=== PATIENT | female | born 1945 | race Caucasian/White ===

== ENCOUNTER 2017-12-09 16:04 | Inpatient (IN) | payer OTHER ==
[2017-12-09 17:20] LABS: ADD UMIC YES; UR ASCORBIC ACID NEGATIVE (NEGATIVE); UR BACTERIA MANY /HPF (NONE SEEN); UR BILIRUBIN (Dip) NEGATIVE (NEGATIVE); UR BLOOD (Dip) 2+ mg/dL (NEGATIVE); UR CLARITY CLOUDY (CLEAR); UR COLOR YELLOW (YELLOW); UR GLUCOSE (Dip) NEGATIVE (NEGATIVE); UR KETONES (Dip) TRACE mg/dL (NEGATIVE); UR LEUKOCYTE ESTERASE (Dip) 3+ Leu/ul (NEGATIVE); UR NITRITE (Dip) POSITIVE (NEGATIVE); UR RBC 1 /HPF (0-5); UR SPECIFIC GRAVITY (Dip) 1.009 (1.003-1.030); UR SQUAMOUS EPITHELIAL CELL FEW /HPF (FEW); UR TOTAL PROTEIN (Dip) NEGATIVE (NEGATIVE); UR UROBILINOGEN (Dip) NEGATIVE (NEGATIVE); UR WBC > 182 /HPF (0-5)
[2017-12-09] MEDS ORDERED: CARBOXYMETHYLCELLULOSE 0.5% 0.1 ML OPH BOTH EYES (18:00)
[2017-12-09] MEDS ORDERED: LORAZEPAM 1 MG TAB PO (18:00)
[2017-12-09] MEDS ORDERED: DEXTROSE 50% 50 ML SYRINGE IV ×2 (18:00)
[2017-12-09] MEDS ORDERED: GLUCAGON 1 MG INJ IM (18:00)
[2017-12-09] MEDS ORDERED: GLUCOSE GEL 15 GRAM TUBE BUCCAL (18:00)
[2017-12-09] MEDS ORDERED: GLUCOSE GEL 15 GRAM TUBE PO ×2 (18:00)
[2017-12-09] MEDS: RIVAROXABAN 20 MG TABLET PO (18:12)
[2017-12-09] MEDS: LISINOPRIL 20 MG TAB PO (18:12)
[2017-12-09] MEDS: DIAZEPAM 5 MG TAB PO (20:57)
[2017-12-09] MEDS: ATORVASTATIN 40 MG TAB PO (20:57)
[2017-12-09] MEDS: AMLODIPINE 5 MG TAB PO (20:58)
[2017-12-09] MEDS: Insulin NOVOLOG SS MILD Algorithm (SS with meals and bedtime) SC (20:58)
[2017-12-09] MEDS: DOCUSATE SODIUM 100 MG CAP PO (21:00)
[2017-12-10] MEDS: ACCUCHECK 2 AM XX (02:00)
[2017-12-10] MEDS: ACETAMINOPHEN 325 MG TAB PO (04:42)
[2017-12-10] MEDS: Insulin NOVOLOG SS MILD Algorithm (SS with meals and bedtime) SC ×4 (08:11→20:38)
[2017-12-10 08:16] LABS: ADD MAN DIFF? NO
[2017-12-10 08:19] LABS: WHITE BLOOD COUNT 7.7 10^3/ul (4.8-10.8)
[2017-12-10 08:19] LABS: BASOPHILS % 0.5 % (0.0-2.0); EOSINOPHILS % 0.5 % (0.0-7.0); HEMATOCRIT 41.9 % (37.0-47.0); HEMOGLOBIN 14.7 g/dl (12.0-16.0); LYMPHOCYTES # 1.3 10^3/ul (0.8-2.9); LYMPHOCYTES % 17.4 % (15.0-51.0); MEAN CORPUSCULAR HEMOGLOBIN 29.8 pg (29.0-33.0); MEAN CORPUSCULAR HGB CONC 35.1 g/dl (32.0-37.0); MEAN CORPUSCULAR VOLUME 84.8 fl (82.0-101.0); MEAN PLATELET VOLUME 11.8 fl (7.4-10.4); MONOCYTE # 0.9 10^3/ul (0.3-0.9); MONOCYTES % 11.4 % (0.0-11.0); NEUTROPHIL # 5.4 10^3/ul (1.6-7.5); NEUTROPHILS % 69.9 % (39.0-77.0); PLATELET COUNT 317 10^3/UL (140-415); RED BLOOD COUNT 4.94 10^6/ul (4.20-5.40); RED CELL DISTRIBUTION WIDTH 12.8 % (11.5-14.5)
[2017-12-10] MEDS: AMLODIPINE 5 MG TAB PO ×2 (08:28→20:07)
[2017-12-10] MEDS: DOCUSATE SODIUM 100 MG CAP PO ×2 (08:29→20:38)
[2017-12-10 08:42] LABS: ALANINE AMINOTRANSFERASE 31 IU/L (13-69); ALBUMIN 3.7 g/dl (3.3-4.9); ALBUMIN/GLOBULIN RATIO 1.19; ALKALINE PHOSPHATASE 151 IU/L (42-121); ANION GAP 19 (8-16); ASPARTATE AMINO TRANSFERASE 34 IU/L (15-46); BILIRUBIN,INDIRECT 1.4 mg/dl (0-1.1); BILIRUBIN,TOTAL 1.4 mg/dl (0.2-1.3); BLOOD UREA NITROGEN 17 mg/dl (7-20); CALCIUM 9.3 mg/dl (8.4-10.2); CARBON DIOXIDE 23 mmol/L (21-31); CHLORIDE 102 mmol/L (97-110); CREATININE 0.84 mg/dl (0.44-1.00); GLUCOSE 176 mg/dl (70-220); POTASSIUM 3.2 mmol/L (3.5-5.1); SODIUM 141 mmol/L (135-144); TOTAL PROTEIN 6.8 g/dl (6.1-8.1)
[2017-12-10] MEDS: CEPHALEXIN 250 MG CAP PO ×2 (14:27→21:27)
[2017-12-10] MEDS: LISINOPRIL 20 MG TAB PO (17:46)
[2017-12-10] MEDS: RIVAROXABAN 20 MG TABLET PO (17:46)
[2017-12-10] MEDS: ATORVASTATIN 40 MG TAB PO (20:08)
[2017-12-10] MEDS: GABAPENTIN 100 MG CAP PO (20:09)
[2017-12-11] MEDS: ACCUCHECK 2 AM XX (02:00)
[2017-12-11] MEDS: CEPHALEXIN 250 MG CAP PO ×3 (06:11→21:35)
[2017-12-11] MEDS: Insulin NOVOLOG SS MILD Algorithm (SS with meals and bedtime) SC ×4 (08:09→21:00)
[2017-12-11] MEDS: AMLODIPINE 5 MG TAB PO ×2 (09:00→21:36)
[2017-12-11] MEDS: DOCUSATE SODIUM 100 MG CAP PO ×2 (09:00→21:00)
[2017-12-11] MEDS: LISINOPRIL 20 MG TAB PO (18:00)
[2017-12-11] MEDS: RIVAROXABAN 20 MG TABLET PO (18:57)
[2017-12-11] MEDS: GABAPENTIN 100 MG CAP PO (21:00)
[2017-12-11] MEDS: ATORVASTATIN 40 MG TAB PO (21:00)
[2017-12-12] MEDS: ACCUCHECK 2 AM XX (02:00)
[2017-12-12] MEDS: CEPHALEXIN 250 MG CAP PO (06:31)
[2017-12-12] MEDS: DOCUSATE SODIUM 100 MG CAP PO ×2 (09:00→21:00)
[2017-12-12] MEDS: Insulin NOVOLOG SS MILD Algorithm (SS with meals and bedtime) SC ×4 (09:09→20:32)
[2017-12-12] MEDS: AMLODIPINE 5 MG TAB PO ×2 (09:17→20:32)
[2017-12-12] MEDS: LEVOFLOXACIN 250 MG TAB PO (14:55)
[2017-12-12] MEDS: LISINOPRIL 20 MG TAB PO (17:45)
[2017-12-12] MEDS: RIVAROXABAN 20 MG TABLET PO (17:45)
[2017-12-12] MEDS: GABAPENTIN 100 MG CAP PO (20:31)
[2017-12-12] MEDS: ATORVASTATIN 40 MG TAB PO (20:32)
[2017-12-12] MEDS: ACETAMINOPHEN 325 MG TAB PO (22:27)
[2017-12-12] MEDS: ALPRAZOLAM 0.25 MG TAB PO (22:28)
[2017-12-13] MEDS: ACCUCHECK 2 AM XX (02:00)
[2017-12-13] MEDS: LEVOFLOXACIN 250 MG TAB PO (06:32)
[2017-12-13 07:00] LABS: ADD MAN DIFF? NO
[2017-12-13 07:05] LABS: BASOPHIL # 0.1 10^3/ul (0.0-0.1); BASOPHILS % 0.8 % (0.0-2.0); EOSINOPHILS # 0.2 10^3/ul (0.0-0.5); EOSINOPHILS % 2.8 % (0.0-7.0); HEMATOCRIT 41.5 % (37.0-47.0); HEMOGLOBIN 14.5 g/dl (12.0-16.0); LYMPHOCYTES # 1.5 10^3/ul (0.8-2.9); LYMPHOCYTES % 23.3 % (15.0-51.0); MEAN CORPUSCULAR HEMOGLOBIN 29.6 pg (29.0-33.0); MEAN CORPUSCULAR HGB CONC 34.9 g/dl (32.0-37.0); MEAN CORPUSCULAR VOLUME 84.7 fl (82.0-101.0); NEUTROPHIL # 3.8 10^3/ul (1.6-7.5); NEUTROPHILS % 57.8 % (39.0-77.0); PLATELET COUNT 335 10^3/UL (140-415); RED CELL DISTRIBUTION WIDTH 12.5 % (11.5-14.5)
[2017-12-13 07:05] LABS: WHITE BLOOD COUNT 6.5 10^3/ul (4.8-10.8)
[2017-12-13 07:24] LABS: PHOSPHORUS 4.7 mg/dl (2.5-4.9)
[2017-12-13 07:28] LABS: ALANINE AMINOTRANSFERASE 38 IU/L (13-69); ALBUMIN 3.5 g/dl (3.3-4.9); ALBUMIN/GLOBULIN RATIO 1.12; ALKALINE PHOSPHATASE 130 IU/L (42-121); ANION GAP 16 (8-16); ASPARTATE AMINO TRANSFERASE 36 IU/L (15-46); BILIRUBIN,INDIRECT 1.1 mg/dl (0-1.1); BILIRUBIN,TOTAL 1.1 mg/dl (0.2-1.3); BLOOD UREA NITROGEN 13 mg/dl (7-20); CALCIUM 9.6 mg/dl (8.4-10.2); CARBON DIOXIDE 28 mmol/L (21-31); CHLORIDE 102 mmol/L (97-110); CHOL/HDL RATIO 3.1 RATIO; CHOLESTEROL 105 mg/dl (100-200); CREATININE 0.81 mg/dl (0.44-1.00); GLUCOSE 164 mg/dl (70-220); HDL CHOLESTEROL 33 mg/dl (33-92); LDL CHOLESTEROL,CALCULATED 46 mg/dl; POTASSIUM 3.5 mmol/L (3.5-5.1); SODIUM 142 mmol/L (135-144); TOTAL PROTEIN 6.6 g/dl (6.1-8.1); TRIGLYCERIDES 132 mg/dl (0-149)
[2017-12-13 07:37] LABS: B-TYPE NATRIURETIC PEPTIDE 107 PG/ML (0-125)
[2017-12-13] MEDS: AMLODIPINE 5 MG TAB PO ×2 (09:00→20:59)
[2017-12-13] MEDS: Insulin NOVOLOG SS MILD Algorithm (SS with meals and bedtime) SC ×4 (09:10→21:00)
[2017-12-13] MEDS: DOCUSATE SODIUM 100 MG CAP PO ×2 (09:16→21:02)
[2017-12-13] MEDS: LISINOPRIL 20 MG TAB PO (17:57)
[2017-12-13] MEDS: RIVAROXABAN 20 MG TABLET PO (17:57)
[2017-12-13] MEDS: ATORVASTATIN 40 MG TAB PO (20:51)
[2017-12-13] MEDS: GABAPENTIN 100 MG CAP PO (20:59)
[2017-12-14] MEDS: ACCUCHECK 2 AM XX (02:00)
[2017-12-14] MEDS: LEVOFLOXACIN 250 MG TAB PO (06:16)
[2017-12-14] MEDS: TRIAMCINOLONE ACET 0.1% 15 GM CR TOP (06:39)
[2017-12-14] MEDS: Insulin NOVOLOG SS MILD Algorithm (SS with meals and bedtime) SC ×4 (08:12→20:44)
[2017-12-14] MEDS: DOCUSATE SODIUM 100 MG CAP PO ×2 (09:07→20:44)
[2017-12-14] MEDS: AMLODIPINE 5 MG TAB PO ×2 (09:07→20:44)
[2017-12-14] MEDS: ACETAMINOPHEN 325 MG TAB PO (09:20)
[2017-12-14] MEDS: RIVAROXABAN 20 MG TABLET PO (17:42)
[2017-12-14] MEDS: LISINOPRIL 20 MG TAB PO (17:42)
[2017-12-14] MEDS: metFORMIN 500 MG TAB PO (17:42)
[2017-12-14] MEDS: GABAPENTIN 100 MG CAP PO (20:44)
[2017-12-14] MEDS: ATORVASTATIN 40 MG TAB PO (20:44)
[2017-12-15] MEDS: ACCUCHECK 2 AM XX (02:00)
[2017-12-15] MEDS: LEVOFLOXACIN 250 MG TAB PO (06:18)
[2017-12-15] MEDS: DOCUSATE SODIUM 100 MG CAP PO ×2 (09:00→20:38)
[2017-12-15] MEDS: metFORMIN 500 MG TAB PO ×2 (09:13→17:35)
[2017-12-15] MEDS: AMLODIPINE 5 MG TAB PO ×2 (09:14→20:32)
[2017-12-15] MEDS: Insulin NOVOLOG SS MILD Algorithm (SS with meals and bedtime) SC ×5 (09:16→20:38)
[2017-12-15] MEDS: RIVAROXABAN 20 MG TABLET PO (18:19)
[2017-12-15] MEDS: LISINOPRIL 20 MG TAB PO (18:20)
[2017-12-15] MEDS: ATORVASTATIN 40 MG TAB PO (20:31)
[2017-12-15] MEDS: ALPRAZOLAM 0.25 MG TAB PO (20:32)
[2017-12-15] MEDS: GABAPENTIN 100 MG CAP PO (20:32)
[2017-12-16] MEDS: ACCUCHECK 2 AM XX (02:00)
[2017-12-16] MEDS: LEVOFLOXACIN 250 MG TAB PO (06:53)
[2017-12-16] MEDS: metFORMIN 500 MG TAB PO ×2 (08:06→17:35)
[2017-12-16] MEDS: Insulin NOVOLOG SS MILD Algorithm (SS with meals and bedtime) SC ×4 (08:08→21:00)
[2017-12-16] MEDS: DOCUSATE SODIUM 100 MG CAP PO ×2 (09:04→21:00)
[2017-12-16] MEDS: AMLODIPINE 5 MG TAB PO ×2 (09:04→20:23)
[2017-12-16] MEDS: ALPRAZOLAM 0.25 MG TAB PO (16:36)
[2017-12-16] MEDS: RIVAROXABAN 20 MG TABLET PO (18:07)
[2017-12-16] MEDS: LISINOPRIL 20 MG TAB PO (18:07)
[2017-12-16] MEDS: ATORVASTATIN 40 MG TAB PO (20:22)
[2017-12-16] MEDS: GABAPENTIN 100 MG CAP PO (20:22)
[2017-12-17] MEDS: ACCUCHECK 2 AM XX (02:00)
[2017-12-17] MEDS: LEVOFLOXACIN 250 MG TAB PO (06:22)
[2017-12-17] MEDS: Insulin NOVOLOG SS MILD Algorithm (SS with meals and bedtime) SC ×4 (07:05→20:58)
[2017-12-17] MEDS: metFORMIN 500 MG TAB PO ×3 (07:35→17:35)
[2017-12-17] MEDS: AMLODIPINE 5 MG TAB PO ×2 (09:37→20:51)
[2017-12-17] MEDS: DOCUSATE SODIUM 100 MG CAP PO ×2 (09:37→20:59)
[2017-12-17] MEDS: LOPERAMIDE 2 MG CAP PO (13:14)
[2017-12-17] MEDS: ALPRAZOLAM 0.25 MG TAB PO (17:08)
[2017-12-17] MEDS: RIVAROXABAN 20 MG TABLET PO (17:51)
[2017-12-17] MEDS: LISINOPRIL 20 MG TAB PO (17:52)
[2017-12-17] MEDS: GABAPENTIN 100 MG CAP PO (20:50)
[2017-12-17] MEDS: ATORVASTATIN 40 MG TAB PO (20:50)
[2017-12-17] MEDS: TRIAMCINOLONE ACET 0.1% 15 GM CR TOP (22:26)
[2017-12-18] MEDS: ACCUCHECK 2 AM XX (03:00)
[2017-12-18] MEDS: LEVOFLOXACIN 250 MG TAB PO (05:53)
[2017-12-18 06:52] LABS: ADD MAN DIFF? NO
[2017-12-18 07:00] LABS: WHITE BLOOD COUNT 4.5 10^3/ul (4.8-10.8)
[2017-12-18 07:00] LABS: BASOPHILS % 0.7 % (0.0-2.0); EOSINOPHILS # 0.1 10^3/ul (0.0-0.5); EOSINOPHILS % 2.4 % (0.0-7.0); HEMATOCRIT 38.8 % (37.0-47.0); HEMOGLOBIN 13.4 g/dl (12.0-16.0); LYMPHOCYTES # 1.2 10^3/ul (0.8-2.9); LYMPHOCYTES % 25.4 % (15.0-51.0); MEAN CORPUSCULAR HEMOGLOBIN 29.8 pg (29.0-33.0); MEAN CORPUSCULAR HGB CONC 34.5 g/dl (32.0-37.0); MEAN CORPUSCULAR VOLUME 86.2 fl (82.0-101.0); MEAN PLATELET VOLUME 11.3 fl (7.4-10.4); MONOCYTE # 0.7 10^3/ul (0.3-0.9); MONOCYTES % 14.4 % (0.0-11.0); NEUTROPHIL # 2.6 10^3/ul (1.6-7.5); NEUTROPHILS % 56.9 % (39.0-77.0); PLATELET COUNT 236 10^3/UL (140-415); RED CELL DISTRIBUTION WIDTH 12.9 % (11.5-14.5)
[2017-12-18] MEDS: Insulin NOVOLOG SS MILD Algorithm (SS with meals and bedtime) SC ×4 (07:05→21:00)
[2017-12-18 07:16] LABS: ANION GAP 15 (8-16); BLOOD UREA NITROGEN 9 mg/dl (7-20); CALCIUM 9.1 mg/dl (8.4-10.2); CARBON DIOXIDE 26 mmol/L (21-31); CHLORIDE 107 mmol/L (97-110); CREATININE 0.73 mg/dl (0.44-1.00); GLUCOSE 116 mg/dl (70-220); POTASSIUM 3.7 mmol/L (3.5-5.1); SODIUM 144 mmol/L (135-144)
[2017-12-18 07:23] LABS: ALANINE AMINOTRANSFERASE 40 IU/L (13-69); ALBUMIN 3.4 g/dl (3.3-4.9); ALBUMIN/GLOBULIN RATIO 1.25; ALKALINE PHOSPHATASE 110 IU/L (42-121); ANION GAP 14 (8-16); ASPARTATE AMINO TRANSFERASE 40 IU/L (15-46); BILIRUBIN,INDIRECT 0.8 mg/dl (0-1.1); BILIRUBIN,TOTAL 0.8 mg/dl (0.2-1.3); BLOOD UREA NITROGEN 9 mg/dl (7-20); CALCIUM 8.9 mg/dl (8.4-10.2); CARBON DIOXIDE 27 mmol/L (21-31); CHLORIDE 106 mmol/L (97-110); CREATININE 0.76 mg/dl (0.44-1.00); GLUCOSE 120 mg/dl (70-220); POTASSIUM 3.2 mmol/L (3.5-5.1); SODIUM 144 mmol/L (135-144); TOTAL PROTEIN 6.1 g/dl (6.1-8.1)
[2017-12-18] MEDS: metFORMIN 500 MG TAB PO ×2 (07:35→17:35)
[2017-12-18] MEDS: DOCUSATE SODIUM 100 MG CAP PO ×2 (09:00→20:30)
[2017-12-18] MEDS: AMLODIPINE 5 MG TAB PO ×2 (09:03→20:29)
[2017-12-18] MEDS: POTASSIUM CHLORIDE (SR) 20 MEQ TAB PO (09:04)
[2017-12-18] MEDS: ALPRAZOLAM 0.25 MG TAB PO (17:55)
[2017-12-18] MEDS: LISINOPRIL 20 MG TAB PO (17:55)
[2017-12-18] MEDS: RIVAROXABAN 20 MG TABLET PO (17:55)
[2017-12-18] MEDS: GUAIFENESIN 20 MG/ML 5ML CUP PO (19:51)
[2017-12-18] MEDS: GABAPENTIN 100 MG CAP PO (20:28)
[2017-12-18] MEDS: ATORVASTATIN 40 MG TAB PO (20:28)
[2017-12-19] MEDS: ACCUCHECK 2 AM XX (02:00)
[2017-12-19] MEDS: Insulin NOVOLOG SS MILD Algorithm (SS with meals and bedtime) SC ×4 (08:14→20:53)
[2017-12-19] MEDS: metFORMIN 500 MG TAB PO ×3 (08:15→17:48)
[2017-12-19] MEDS: DOCUSATE SODIUM 100 MG CAP PO ×2 (08:42→20:43)
[2017-12-19] MEDS: AMLODIPINE 5 MG TAB PO ×2 (09:01→20:42)
[2017-12-19] MEDS: RIVAROXABAN 20 MG TABLET PO (17:48)
[2017-12-19] MEDS: LISINOPRIL 20 MG TAB PO (18:00)
[2017-12-19] MEDS: GUAIFENESIN 20 MG/ML 5ML CUP PO (20:42)
[2017-12-19] MEDS: ATORVASTATIN 40 MG TAB PO (20:42)
[2017-12-19] MEDS: ALPRAZOLAM 0.25 MG TAB PO (20:43)
[2017-12-19] MEDS: GABAPENTIN 100 MG CAP PO (20:43)
[2017-12-20] MEDS: ACCUCHECK 2 AM XX (02:00)
[2017-12-20 06:38] LABS: ADD MAN DIFF? NO
[2017-12-20 06:41] LABS: HEMATOCRIT 38.9 % (37.0-47.0); HEMOGLOBIN 13.3 g/dl (12.0-16.0); LYMPHOCYTES % 31.9 % (15.0-51.0); MEAN CORPUSCULAR HGB CONC 34.2 g/dl (32.0-37.0); MEAN CORPUSCULAR VOLUME 84.9 fl (82.0-101.0); MEAN PLATELET VOLUME 11.3 fl (7.4-10.4); MONOCYTES % 11.2 % (0.0-11.0); NEUTROPHILS % 49.1 % (39.0-77.0); PLATELET COUNT 217 10^3/UL (140-415); RED BLOOD COUNT 4.58 10^6/ul (4.20-5.40); RED CELL DISTRIBUTION WIDTH 12.7 % (11.5-14.5)
[2017-12-20 06:41] LABS: WHITE BLOOD COUNT 4.1 10^3/ul (4.8-10.8)
[2017-12-20 06:42] LABS: BASOPHILS % 0.5 % (0.0-2.0); EOSINOPHILS # 0.3 10^3/ul (0.0-0.5); EOSINOPHILS % 7.1 % (0.0-7.0); LYMPHOCYTES # 1.3 10^3/ul (0.8-2.9); MONOCYTE # 0.5 10^3/ul (0.3-0.9)
[2017-12-20] MEDS: Insulin NOVOLOG SS MILD Algorithm (SS with meals and bedtime) SC ×4 (07:05→21:00)
[2017-12-20 07:11] LABS: ALANINE AMINOTRANSFERASE 33 IU/L (13-69); ALBUMIN 3.2 g/dl (3.3-4.9); ALKALINE PHOSPHATASE 106 IU/L (42-121); ANION GAP 15 (8-16); ASPARTATE AMINO TRANSFERASE 33 IU/L (15-46); BILIRUBIN,INDIRECT 0.7 mg/dl (0-1.1); BILIRUBIN,TOTAL 0.7 mg/dl (0.2-1.3); BLOOD UREA NITROGEN 11 mg/dl (7-20); CALCIUM 8.8 mg/dl (8.4-10.2); CARBON DIOXIDE 27 mmol/L (21-31); CHLORIDE 106 mmol/L (97-110); CREATININE 0.67 mg/dl (0.44-1.00); GLUCOSE 124 mg/dl (70-220); MAGNESIUM 1.9 mg/dl (1.7-2.5); POTASSIUM 3.4 mmol/L (3.5-5.1); SODIUM 145 mmol/L (135-144); TOTAL PROTEIN 6.1 g/dl (6.1-8.1)
[2017-12-20] MEDS: metFORMIN 500 MG TAB PO ×2 (07:35→17:35)
[2017-12-20] MEDS: DOCUSATE SODIUM 100 MG CAP PO ×2 (08:17→21:00)
[2017-12-20] MEDS: AMLODIPINE 5 MG TAB PO ×2 (08:29→21:35)
[2017-12-20] MEDS: POTASSIUM CHLORIDE (SR) 20 MEQ TAB PO (08:29)
[2017-12-20] MEDS: GUAIFENESIN 20 MG/ML 5ML CUP PO (16:55)
[2017-12-20] MEDS ORDERED: BETAMETHASONE/CLOTRIMAZOLE 15 GM CR TOP (17:30)
[2017-12-20] MEDS: RIVAROXABAN 20 MG TABLET PO (17:52)
[2017-12-20] MEDS: LISINOPRIL 20 MG TAB PO (18:01)
[2017-12-20] MEDS: ATORVASTATIN 40 MG TAB PO (21:34)
[2017-12-20] MEDS: ALPRAZOLAM 0.25 MG TAB PO (21:36)
[2017-12-20] MEDS: GABAPENTIN 100 MG CAP PO (21:36)
[2017-12-21] MEDS: ACCUCHECK 2 AM XX (02:00)
[2017-12-21] MEDS: GUAIFENESIN 20 MG/ML 5ML CUP PO ×3 (02:16→20:21)
[2017-12-21] MEDS ORDERED: ALBUTEROL/IPRATROPIUM (NEB) 3 ML AMP (03:09)
[2017-12-21] MEDS: ALBUTEROL/IPRATROPIUM (NEB) 3 ML AMP HHN ×2 (03:21→15:35)
[2017-12-21] MEDS: Insulin NOVOLOG SS MILD Algorithm (SS with meals and bedtime) SC ×4 (07:05→20:21)
[2017-12-21] MEDS: metFORMIN 500 MG TAB PO ×2 (07:35→17:33)
[2017-12-21] MEDS: AMLODIPINE 5 MG TAB PO ×2 (08:48→20:10)
[2017-12-21] MEDS: DOCUSATE SODIUM 100 MG CAP PO ×2 (09:00→21:00)
[2017-12-21 09:08] LABS: ADD MAN DIFF? NO
[2017-12-21 09:14] LABS: WHITE BLOOD COUNT 5.1 10^3/ul (4.8-10.8)
[2017-12-21 09:14] LABS: BASOPHILS % 0.4 % (0.0-2.0); EOSINOPHILS # 0.2 10^3/ul (0.0-0.5); EOSINOPHILS % 4.5 % (0.0-7.0); HEMATOCRIT 40.9 % (37.0-47.0); LYMPHOCYTES # 1.6 10^3/ul (0.8-2.9); LYMPHOCYTES % 31.5 % (15.0-51.0); MEAN CORPUSCULAR HEMOGLOBIN 29.4 pg (29.0-33.0); MEAN CORPUSCULAR HGB CONC 34.2 g/dl (32.0-37.0); MEAN CORPUSCULAR VOLUME 85.9 fl (82.0-101.0); MEAN PLATELET VOLUME 11.8 fl (7.4-10.4); MONOCYTE # 0.5 10^3/ul (0.3-0.9); MONOCYTES % 10.2 % (0.0-11.0); NEUTROPHIL # 2.7 10^3/ul (1.6-7.5); NEUTROPHILS % 53.2 % (39.0-77.0); PLATELET COUNT 202 10^3/UL (140-415); RED BLOOD COUNT 4.76 10^6/ul (4.20-5.40); RED CELL DISTRIBUTION WIDTH 12.8 % (11.5-14.5)
[2017-12-21 09:40] LABS: ANION GAP 15 (8-16); BLOOD UREA NITROGEN 11 mg/dl (7-20); CALCIUM 8.9 mg/dl (8.4-10.2); CARBON DIOXIDE 24 mmol/L (21-31); CHLORIDE 108 mmol/L (97-110); CREATININE 0.71 mg/dl (0.44-1.00); GLUCOSE 132 mg/dl (70-220); POTASSIUM 4.1 mmol/L (3.5-5.1); SODIUM 143 mmol/L (135-144)
[2017-12-21] MEDS: ACETAMINOPHEN 325 MG TAB PO (10:38)
[2017-12-21] MEDS: RIVAROXABAN 20 MG TABLET PO (17:32)
[2017-12-21] MEDS: LISINOPRIL 20 MG TAB PO (17:33)
[2017-12-21] MEDS: GABAPENTIN 100 MG CAP PO (20:10)
[2017-12-21] MEDS: ALPRAZOLAM 0.25 MG TAB PO (20:10)
[2017-12-21] MEDS: TRIAMCINOLONE ACET 0.1% 15 GM CR TOP (20:11)
[2017-12-21] MEDS: ATORVASTATIN 40 MG TAB PO (20:11)
[2017-12-22] MEDS: ACCUCHECK 2 AM XX (02:57)
[2017-12-22] MEDS: metFORMIN 500 MG TAB PO ×2 (07:35→16:58)
[2017-12-22] MEDS: Insulin NOVOLOG SS MILD Algorithm (SS with meals and bedtime) SC ×4 (08:00→20:28)
[2017-12-22] MEDS: DOCUSATE SODIUM 100 MG CAP PO ×2 (08:15→20:25)
[2017-12-22] MEDS: AMLODIPINE 5 MG TAB PO ×2 (08:17→20:25)
[2017-12-22] MEDS: ALBUTEROL/IPRATROPIUM (NEB) 3 ML AMP HHN (14:38)
[2017-12-22] MEDS: RIVAROXABAN 20 MG TABLET PO (16:58)
[2017-12-22] MEDS: LISINOPRIL 20 MG TAB PO (17:00)
[2017-12-22] MEDS: ATORVASTATIN 40 MG TAB PO (20:25)
[2017-12-22] MEDS: ALPRAZOLAM 0.25 MG TAB PO (20:25)
[2017-12-22] MEDS: GABAPENTIN 100 MG CAP PO (20:25)
[2017-12-23] MEDS: ACETAMINOPHEN 325 MG TAB PO (00:43)
[2017-12-23] MEDS: ACCUCHECK 2 AM XX (02:00)
[2017-12-23] MEDS: metFORMIN 500 MG TAB PO ×2 (07:35→17:34)
[2017-12-23] MEDS: Insulin NOVOLOG SS MILD Algorithm (SS with meals and bedtime) SC ×4 (08:06→22:00)
[2017-12-23] MEDS: DOCUSATE SODIUM 100 MG CAP PO ×2 (09:00→21:00)
[2017-12-23] MEDS: AMLODIPINE 5 MG TAB PO ×2 (10:12→22:02)
[2017-12-23] MEDS: GUAIFENESIN 20 MG/ML 5ML CUP PO (14:48)
[2017-12-23] MEDS: RIVAROXABAN 20 MG TABLET PO (18:02)
[2017-12-23] MEDS: LISINOPRIL 20 MG TAB PO ×2 (18:10→22:42)
[2017-12-23] MEDS: ATORVASTATIN 40 MG TAB PO (21:58)
[2017-12-23] MEDS: GABAPENTIN 100 MG CAP PO (21:58)
[2017-12-23] MEDS: ALPRAZOLAM 0.25 MG TAB PO (21:58)
[2017-12-24] MEDS: ACCUCHECK 2 AM XX (02:00)
[2017-12-24] MEDS: Insulin NOVOLOG SS MILD Algorithm (SS with meals and bedtime) SC ×4 (07:05→21:00)
[2017-12-24] MEDS: AMLODIPINE 5 MG TAB PO ×2 (08:46→21:51)
[2017-12-24] MEDS: DOCUSATE SODIUM 100 MG CAP PO ×2 (08:47→21:00)
[2017-12-24] MEDS: metFORMIN 500 MG TAB PO ×2 (08:47→17:35)
[2017-12-24] MEDS: GUAIFENESIN 20 MG/ML 5ML CUP PO (15:54)
[2017-12-24] MEDS: ALBUTEROL/IPRATROPIUM (NEB) 3 ML AMP HHN (17:05)
[2017-12-24] MEDS: RIVAROXABAN 20 MG TABLET PO (17:48)
[2017-12-24] MEDS: LISINOPRIL 20 MG TAB PO (17:48)
[2017-12-24] MEDS: GABAPENTIN 100 MG CAP PO (21:50)
[2017-12-24] MEDS: ATORVASTATIN 40 MG TAB PO (21:50)
[2017-12-24] MEDS: ALPRAZOLAM 0.25 MG TAB PO (21:52)
[2017-12-25] MEDS: ACCUCHECK 2 AM XX (02:00)
[2017-12-25] MEDS: Insulin NOVOLOG SS MILD Algorithm (SS with meals and bedtime) SC ×4 (07:05→19:56)
[2017-12-25] MEDS: metFORMIN 500 MG TAB PO ×3 (07:35→17:14)
[2017-12-25] MEDS: DOCUSATE SODIUM 100 MG CAP PO ×3 (08:13→19:55)
[2017-12-25] MEDS: AMLODIPINE 5 MG TAB PO ×2 (08:13→19:56)
[2017-12-25] MEDS: GUAIFENESIN 20 MG/ML 5ML CUP PO ×2 (08:46→20:10)
[2017-12-25] MEDS: LISINOPRIL 20 MG TAB PO (17:50)
[2017-12-25] MEDS: RIVAROXABAN 20 MG TABLET PO (17:50)
[2017-12-25] MEDS: ALPRAZOLAM 0.25 MG TAB PO (17:55)
[2017-12-25] MEDS: GABAPENTIN 100 MG CAP PO (19:55)
[2017-12-25] MEDS: ATORVASTATIN 40 MG TAB PO (19:56)
[2017-12-26] MEDS: ACCUCHECK 2 AM XX (02:15)
[2017-12-26] MEDS: metFORMIN 500 MG TAB PO (07:35)
[2017-12-26] MEDS: Insulin NOVOLOG SS MILD Algorithm (SS with meals and bedtime) SC ×4 (08:06→21:00)
[2017-12-26] MEDS: AMLODIPINE 5 MG TAB PO ×2 (08:30→21:18)
[2017-12-26] MEDS: DOCUSATE SODIUM 100 MG CAP PO ×2 (08:30→21:18)
[2017-12-26] MEDS: RIVAROXABAN 20 MG TABLET PO (17:49)
[2017-12-26] MEDS: ALPRAZOLAM 0.25 MG TAB PO (17:49)
[2017-12-26] MEDS: LISINOPRIL 20 MG TAB PO (18:43)
[2017-12-26] MEDS: GABAPENTIN 100 MG CAP PO (21:18)
[2017-12-26] MEDS: ATORVASTATIN 40 MG TAB PO (21:18)
[2017-12-27] MEDS: ACCUCHECK 2 AM XX (02:00)
[2017-12-27] MEDS: DOCUSATE SODIUM 100 MG CAP PO ×2 (08:19→20:52)
[2017-12-27] MEDS: AMLODIPINE 5 MG TAB PO ×2 (08:20→20:53)
[2017-12-27] MEDS: Insulin NOVOLOG SS MILD Algorithm (SS with meals and bedtime) SC ×4 (08:26→21:05)
[2017-12-27] MEDS: ALBUTEROL/IPRATROPIUM (NEB) 3 ML AMP HHN (14:05)
[2017-12-27] MEDS: GUAIFENESIN 20 MG/ML 5ML CUP PO ×2 (14:31→21:00)
[2017-12-27] MEDS: ALPRAZOLAM 0.25 MG TAB PO (16:28)
[2017-12-27] MEDS: RIVAROXABAN 20 MG TABLET PO (18:12)
[2017-12-27] MEDS: LISINOPRIL 20 MG TAB PO (18:14)
[2017-12-27] MEDS: ATORVASTATIN 40 MG TAB PO (20:52)
[2017-12-27] MEDS: GABAPENTIN 100 MG CAP PO (20:52)
[2017-12-27] MEDS: ACETAMINOPHEN 325 MG TAB PO (23:22)
[2017-12-28] MEDS: ACCUCHECK 2 AM XX (02:08)
[2017-12-28 02:53] LABS: ADD UMIC YES; UR ASCORBIC ACID NEGATIVE (NEGATIVE); UR BACTERIA FEW /HPF (NONE SEEN); UR BILIRUBIN (Dip) NEGATIVE (NEGATIVE); UR BLOOD (Dip) NEGATIVE (NEGATIVE); UR CLARITY CLEAR (CLEAR); UR COLOR YELLOW (YELLOW); UR GLUCOSE (Dip) 1+ mg/dL (NEGATIVE); UR KETONES (Dip) NEGATIVE (NEGATIVE); UR LEUKOCYTE ESTERASE (Dip) 1+ Leu/ul (NEGATIVE); UR NITRITE (Dip) NEGATIVE (NEGATIVE); UR RBC 0 /HPF (0-5); UR SPECIFIC GRAVITY (Dip) 1.006 (1.003-1.030); UR SQUAMOUS EPITHELIAL CELL FEW /HPF (FEW); UR TOTAL PROTEIN (Dip) NEGATIVE (NEGATIVE); UR TRANSITIONAL EPI CELL FEW /HPF (NONE SEEN); UR UROBILINOGEN (Dip) NEGATIVE (NEGATIVE); UR WBC 15 /HPF (0-5)
[2017-12-28] MEDS: Insulin NOVOLOG SS MILD Algorithm (SS with meals and bedtime) SC ×2 (08:10→12:48)
[2017-12-28] MEDS: DOCUSATE SODIUM 100 MG CAP PO (08:37)
[2017-12-28] MEDS: AMLODIPINE 5 MG TAB PO (08:37)
== END 2017-12-28 14:15 | disposition home health service (06) | DRG 56 ==
LOC: VRC 16:04
PROC: F07Z8FZ Transfer Training Treatment using Assistive, Adaptive, Supportive or Protective Equipment (ICD-10-PCS; principal; 2017-12-09)
PROC: F07Z5FZ Bed Mobility Treatment using Assistive, Adaptive, Supportive or Protective Equipment (ICD-10-PCS; 2017-12-09)
PROC: F07Z9FZ Gait Training/Functional Ambulation Treatment using Assistive, Adaptive, Supportive or Protective Equipment (ICD-10-PCS; 2017-12-09)
PROC: F08Z2FZ Grooming/Personal Hygiene Treatment using Assistive, Adaptive, Supportive or Protective Equipment (ICD-10-PCS; 2017-12-09)
PROC: F08Z0FZ Bathing/Showering Techniques Treatment using Assistive, Adaptive, Supportive or Protective Equipment (ICD-10-PCS; 2017-12-09)
PROC: F08Z1FZ Dressing Techniques Treatment using Assistive, Adaptive, Supportive or Protective Equipment (ICD-10-PCS; 2017-12-09)
DX: I69.354 Hemiplegia and hemiparesis following cerebral infarction affecting left non-dominant side (principal); G93.49 Other encephalopathy; J96.91 Respiratory failure, unspecified with hypoxia; I11.0 Hypertensive heart disease with heart failure; I50.9 Heart failure, unspecified; I49.5 Sick sinus syndrome; E11.40 Type 2 diabetes mellitus with diabetic neuropathy, unspecified; E87.1 Hypo-osmolality and hyponatremia; F33.9 Major depressive disorder, recurrent, unspecified; R45.851 Suicidal ideations; N39.0 Urinary tract infection, site not specified; R13.10 Dysphagia, unspecified; E11.65 Type 2 diabetes mellitus with hyperglycemia; F06.8 Other specified mental disorders due to known physiological condition; I69.391 Dysphagia following cerebral infarction; E78.5 Hyperlipidemia, unspecified; F41.1 Generalized anxiety disorder; E87.6 Hypokalemia; I49.9 Cardiac arrhythmia, unspecified; F41.0 Panic disorder [episodic paroxysmal anxiety]; I69.398 Other sequelae of cerebral infarction; Z79.4 Long term (current) use of insulin; Z88.2 Allergy status to sulfonamides; Z86.718 Personal history of other venous thrombosis and embolism
CPT/HCPCS: 71045; 73030; 80048; 80053; 80061; 81001; 82962; 83735; 83880; 84100; 84439; 84443; 85025; 87075; 87081; 87086; 92507; 92523; 93005; 93306; 94640; 94664; 97110; 97112; 97116; 97150; 97163; 97167; 97530; 97535; 97542